=== PATIENT | female | born 1955 ===

== ENCOUNTER → 2017-06-10 | Emergency (ER) | payer OTHER ==
[~2017-06-10] VITALS: Ht 167.6 cm; Wt 83.9 kg
[~2017-06-10] MED LIST: CLONAZEPAM2 MG; NEURONTIN800 MG; SEROQUEL200 MG; SYNTHROID50 MCG; ZOLOFT50 MG
== END | disposition home or self-care (01) ==
LOC: ER 11:30
DX: G89.11 Acute pain due to trauma (principal); M54.2 Cervicalgia; R41.0 Disorientation, unspecified; G44.309 Post-traumatic headache, unspecified, not intractable